=== PATIENT | male | born 1960 | race African-American/Black ===

== ENCOUNTER 2018-02-04 14:52 | Emergency (ER) | payer MEDICAID ==
[~2018-02-04] VITALS: Ht 185.4 cm; Wt 102.0 kg
[2018-02-04] MEDS ORDERED: IBUPROFEN 800MG TABLET PO ONE (15:30)
[2018-02-04 17:04] VITALS: BP 176/83
== END 2018-02-04 17:07 | disposition home or self-care (01) ==
LOC: ER 15:33
DX: S80.11XA Contusion of right lower leg, initial encounter (principal); M85.80 Other specified disorders of bone density and structure, unspecified site; V23.4XXA Motorcycle driver injured in collision with car, pick-up truck or van in traffic accident, initial encounter; Y93.89 Activity, other specified; Y92.488 Other paved roadways as the place of occurrence of the external cause
CPT/HCPCS: 73590; 99284; Z7610